=== PATIENT | female | born 1935 | race Caucasian/White ===

== ENCOUNTER 2016-12-29 14:06 | Inpatient (IN) | payer MEDICARE, OTHER ==
[~2016-12-29] VITALS: Ht 170.2 cm; Wt 77.1 kg
[~2016-12-29 14:06] MED LIST: ACET325 PO; ACTEMRA400 MG/20 IV; ALBU90OI; ALBU90OI INH; AMOX500 PO; ATORVASTATIN 20 MG; AZATHIOPRINE 50 MG; BENA20; BENAML20/5 PO; CALCA400CH; CALCIT950 PO; CHLAMI; CHOL10002 PO; CYCL10 PO; ERGO400; FERROUS SUL PO; FISH1000 PO; FOLI1 PO; FOLI400 PO; GLIM2 PO; HYDACE10 PO; HYDACE5; HYDACE5 PO; HYDHCL25 PO; HYDR1TAB94 PO; HYDROXYCHLOROQUINE 200 MG PO; IBUP400 PO; IMIP25 PO; IRON; K EFFERVESCENT; LATA.005SO BOTHEYES; LEVFLO500 PO; Lotrel 10-20 M1 EACH PO; METF500 PO; METO100ER PO; METTREX2.5 PO; MULVITMINF PO; Magnesium30 MG; NAPR220 PO; NORT25 PO; OMEP20ER PO; OMEP40CA12 PO; OXAP600; OXYACE5T PO; OXYC10ER PO; OXYC20ER; OXYC5 PO; OXYCONTIN 20 MG PO; Oxycodone HCl20 M1 PO; Oxycontin20 MG PO; POTA20PAC PO; POTCHL10ER PO; PRED5 PO; Prilosec Otc20 MG PO; Rituxan10 MG/ML; Rituxan10 MG/ML IV; Rocephin 1g1 G/50 ML IV; TRIM100 PO; VENL75ER PO; ZOLP5 PO; [UNRECOGNIZED DRUG - OTHER]; [UNRECOGNIZED DRUG - OTHER]; [UNRECOGNIZED DRUG - OTHER] IV
[2017-01-07] MEDS ORDERED: Lotrel 5-40 MG1 EACH PO (15:24)
[2017-01-07] MEDS ORDERED: [UNRECOGNIZED DRUG - OTHER] IV (15:27)
[2017-01-07] MEDS ORDERED: Lomotil Tablet1 EACH PO (15:27)
[2017-01-07] MEDS ORDERED: ACIDOPHILUS1 EAC1 PO (15:29)
--- NOTE | 2017-01-27 14:20 | NUR ---
Ambulatory in Day Surgery [facility] P[facility] warming gown applied. History, Chart, Medications and Allergies reviewed before start of procedure. Lungs clear T/O to Auscultation. Patient confirms NPO status and agrees with scheduled surgery.
--- NOTE | 2017-01-27 18:41 | NUR ---
SHIFT SUMMARY PT ARRIVED TO ROOM AT 1830, A&O, VSS, RA, SENSATION RETURNED TO MID-THIGH, SLIGHTLY ABLE TO MOVE TOES, JEFFREY PO - EATING JELLO AND ICE CHIPS. REG DINNER - GLUTEN FREE ORDERED FOR PT. WILL CTM AND TX PER EMAR UNTIL REPORT GIVEN TO JEFFREY PENA.
--- NOTE | 2017-01-28 04:06 | NUR ---
SHIFT SUMMARY PT IS POD 1 FROM R TKA. CRYOTHERAPY IN PLACE WELL DESIREE BANDAGE, WHICH IS CDI. SCD'S IN PLACE AND PT TOELRATED CPM SEVERAL TIMES T/O SHIFT. PT AMBULATED T/O SHIFT TO BATHROOM W/GOOD OUTPUT AND PO INTAKE. PAIN MANAGED WITH 7.5-15 MG ROXICODONE. VSS T/O SHIFT.
[2017-01-28 04:52] LABS: BASOPHILS ABSOLUTE AUTO 0.01 K/mm3 (0.00-0.23); BASOPHILS PERCENT AUTO 0 % (0-2); EOSINOPHILS ABSOLUTE AUTO 0.01 K/mm3 (0.00-0.68); EOSINOPHILS PERCENT AUTO 0 % (0-6); Hematocrit 33.1 % (33.0-51.0); Hemoglobin 11.3 g/dL (11.5-16.0); IMMATURE GRAN ABSOLUTE AUTO 0.01 K/mm3 (0.00-0.10); IMMATURE GRAN PERCENT AUTO 0 % (0-1); LYMPHOCYTES ABSOLUTE AUTO 0.49 K/mm3 (0.84-5.20); LYMPHOCYTES PERCENT AUTO 8 % (21-46); MONOCYTES ABSOLUTE AUTO 0.22 K/mm3 (0.16-1.47); MONOCYTES PERCENT AUTO 4 % (4-13); Mean Corpuscular HGB 30.6 pg (26.0-34.0); Mean Corpuscular HGB Conc 34.1 g/dL (31.5-36.5); Mean Corpuscular Volume 90 fL (80-100); Mean Platelet Volume 10.3 fL (9.1-12.4); NEUTROPHILS ABSOLUTE AUTO 5.31 K/mm3 (1.96-9.15); NEUTROPHILS PERCENT AUTO 88 % (41-73); Platelet Count 125 K/mm3 (150-400); RDW Coefficient Variation 12.8 % (11.7-14.2); RDW Standard Deviation 41.6 fL (35.1-46.3); Red Blood Cell Count 3.69 M/mm3 (3.80-5.20); White Blood Cell Count 6.05 K/mm3 (4.00-11.30)
[2017-01-28 05:14] LABS: Anion Gap 8 mmol/L (6-16); Blood Urea Nitrogen 21 mg/dL (8-24); Bun/Creatinine Ratio 22.7 (12.0-20.0); CO2, Blood 23 mmol/L (21-32); Calcium, Blood 8.5 mg/dL (8.5-10.1); Chloride, Blood 106 mmol/L (98-108); Creatinine, Blood 0.92 mg/dL (0.40-1.00); Glomerular Filtration Rate >60 (60-); Glucose, Blood 220 mg/dL (70-99); Magnesium, Blood 2.1 mg/dL (1.6-2.4); Potassium, Blood 4.1 mmol/L (3.5-5.5); Sodium, Blood 137 mmol/L (136-145)
[2017-01-28] MEDS ORDERED: ASPI325EC PO (11:02)
[2017-01-28] MEDS ORDERED: PROM25 PO (11:04)
--- NOTE | 2017-01-28 14:57 | NUR ---
DISCHARGE PT DISCHARGED HOME AT 1430. PT WAS PROVIDED WITH WRITTEN AND VERBAL DISCHARGE INSTRUCTIONS. PT RECIEVED REPLACEMENT DRESSINGS AND PRESCRIPTIONS. QUESTIONS ANSWERED. PT REPORTED UNDERSTANDING DISCHARGE INSTRUCTIONS AND APPEARED PLEASED WITH THE DISCHARGE PLAN. VSS. PT ASSISTED OUT IN W/C BY MICHELLE CHRISTENSEN.
[2017-12-09] MEDS ORDERED: GOLIMUMAB IV (15:23)
[2017-12-09] MEDS ORDERED: Amlodipine-Ben1 EACH PO (15:24)
[2017-12-09] MEDS ORDERED: LATANOPROST 0.7.5 ML BOTHEYES (15:25)
[2017-12-09] MEDS ORDERED: OXYC5 PO (15:25)
[2017-12-09] MEDS ORDERED: Desyrel150 MG PO (15:26)
[2017-12-09] MEDS ORDERED: GLIM2 PO (15:28)
[2018-01-10] MEDS ORDERED: Oxycodone-Apap1 EA14 PO (12:54)
[2018-01-10] MEDS ORDERED: TRAZ150T57 PO (12:54)
[2018-01-10] MEDS ORDERED: Lomotil Tablet1 EACH PO (12:54)
[2018-01-10] MEDS ORDERED: LATANOPROST2.5 ML OP (12:54)
[2018-01-10] MEDS ORDERED: Micro-K10 MEQ (12:54)
[2018-01-11] MEDS ORDERED: METO50 PO (13:38)
[2018-01-11] MEDS ORDERED: XARELTO15 MG PO (14:16)
[2018-04-05] MEDS ORDERED: OMEPRAZOLE MAGN20 MG PO (14:12)
[2018-04-05] MEDS ORDERED: GLIM2 PO (14:12)
[2018-04-05] MEDS ORDERED: SIMPONI AR50 MG/4 ML IV (14:13)
[2018-04-05] MEDS ORDERED: VITAMIN D3400 UNIT PO (14:13)
[2018-04-05] MEDS ORDERED: Cranberry300 MG PO (14:15)
[2018-04-05] MEDS ORDERED: CALCIUM 500 +1 EAC2 PO (14:15)
[2018-04-05] MEDS ORDERED: TRAM50 PO (14:16)
[2018-04-05] MEDS ORDERED: METO25ER PO (14:16)
[2018-04-05] MEDS ORDERED: Lomotil Tablet1 EACH PO (14:16)
[2018-04-05] MEDS ORDERED: ELIQUIS2.5 MG PO (14:17)
== END 2017-01-28 14:45 | disposition home or self-care (01) | DRG 470 ==
LOC: SURS 01-27 12:59 → PRE IP 01-27 15:00 → SURS 01-27 20:01
PROVIDERS: ADMIT Orthopaedic Surgery
PROC: 8E0YXBZ Computer Assisted Procedure of Lower Extremity (ICD-10-PCS; 2017-01-27)
PROC: 0SRC0J9 Replacement of Right Knee Joint with Synthetic Substitute, Cemented, Open Approach (ICD-10-PCS; principal; 2017-01-27 15:00)
DX: M17.11 Unilateral primary osteoarthritis, right knee (principal); M06.9 Rheumatoid arthritis, unspecified; E11.9 Type 2 diabetes mellitus without complications; K74.60 Unspecified cirrhosis of liver; K90.0 Celiac disease; E78.5 Hyperlipidemia, unspecified; Z79.899 Other long term (current) drug therapy; Z88.2 Allergy status to sulfonamides; Z91.030 Bee allergy status; Z88.8 Allergy status to other drugs, medicaments and biological substances; Z91.018 Allergy to other foods; Z85.3 Personal history of malignant neoplasm of breast
CPT/HCPCS: 36415; 73560-RT; 80048; 82947; 83735; 85025; 86850; 86900; 86901; 88300; 97110; 97116; 97162; 97530; C1713; C1776; G8978; G8979; J0171; J0690; J0735; J1100; J1885; J2250; J2795; J3010; J3370; J7030; J7050; J7120

== ENCOUNTER → 2017-06-17 | Outpatient (CLI) | payer MEDICARE, OTHER ==
[~2017-06-17] MED LIST changes: +ACIDOPHILUS1 EAC1 PO; +ASPI325EC PO; +Lomotil Tablet1 EACH PO; +Lotrel 5-40 MG1 EACH PO; +PROM25 PO; +[UNRECOGNIZED DRUG - OTHER] IV
== END ==
LOC: PLD 11:50 → LAB SHORT 11:50
DX: D48.5 Neoplasm of uncertain behavior of skin (principal)
CPT/HCPCS: 88305

== ENCOUNTER 2017-06-30 05:59 | Emergency (ER) | payer MEDICARE, OTHER ==
[~2017-06-30] VITALS: Ht 170.2 cm; Wt 71.7 kg
[2017-06-30 06:47] LABS: Source, Urine Clean Catch
[2017-06-30 06:55] LABS: Bilirubin, Urine Neg (Neg); Blood, Urine 5+ (Neg); Glucose Qualitative, Urine Neg (Neg); Ketones, Urine Neg (Neg); Leukocyte Esterase, Urine 3+ (Neg); Nitrite, Urine Pos (Neg); Protein, Urine 1+ (Neg); Urobilinogen, Urine NORM (Normal)
[2017-06-30 07:02] LABS: BASOPHILS ABSOLUTE AUTO 0.02 K/mm3 (0.00-0.23); BASOPHILS PERCENT AUTO 0 % (0-2); EOSINOPHILS ABSOLUTE AUTO 0.24 K/mm3 (0.00-0.68); EOSINOPHILS PERCENT AUTO 4 % (0-6); Hematocrit 38.7 % (33.0-51.0); Hemoglobin 12.9 g/dL (11.5-16.0); IMMATURE GRAN ABSOLUTE AUTO 0.01 K/mm3 (0.00-0.10); IMMATURE GRAN PERCENT AUTO 0 % (0-1); LYMPHOCYTES ABSOLUTE AUTO 1.51 K/mm3 (0.84-5.20); LYMPHOCYTES PERCENT AUTO 26 % (21-46); MONOCYTES ABSOLUTE AUTO 0.52 K/mm3 (0.16-1.47); MONOCYTES PERCENT AUTO 9 % (4-13); Mean Corpuscular HGB 29.6 pg (26.0-34.0); Mean Corpuscular HGB Conc 33.3 g/dL (31.5-36.5); Mean Corpuscular Volume 89 fL (80-100); NEUTROPHILS ABSOLUTE AUTO 3.63 K/mm3 (1.96-9.15); NEUTROPHILS PERCENT AUTO 61 % (41-73); Platelet Count 155 K/mm3 (150-400); RDW Coefficient Variation 13.4 % (11.7-14.2); RDW Standard Deviation 43.9 fL (35.1-46.3); Red Blood Cell Count 4.36 M/mm3 (3.80-5.20); White Blood Cell Count 5.93 K/mm3 (4.00-11.30)
[2017-06-30 07:09] LABS: Appearance, Urine Cloudy (Clear); Color, Urine Yellow (P-Yellow)
[2017-06-30 07:13] LABS: White Blood Cells, Urine 50-100 /hpf (0-5)
[2017-06-30 07:15] LABS: Calcium, Blood 9.4 mg/dL (8.5-10.1); Creatinine, Blood 1.09 mg/dL (0.40-1.00); Potassium, Blood 4.2 mmol/L (3.5-5.5); Squamous Epithelial Cells Few /hpf (Few)
[2017-06-30 07:16] LABS: Bacteria Many /hpf
[2017-06-30] MEDS ORDERED: CEPH500 PO (07:43)
== END 2017-06-30 07:52 | disposition home or self-care (01) ==
LOC: ER 05:59
PROVIDERS: Emergency Medicine
DX: N12 Tubulo-interstitial nephritis, not specified as acute or chronic (principal); E11.9 Type 2 diabetes mellitus without complications; Z88.2 Allergy status to sulfonamides; Z91.030 Bee allergy status; Z88.8 Allergy status to other drugs, medicaments and biological substances; Z79.899 Other long term (current) drug therapy; Z79.891 Long term (current) use of opiate analgesic
CPT/HCPCS: 36415; 80048; 81001; 85025; 87077; 87086; 87186; 96374; 99283; J1885

== ENCOUNTER 2017-12-29 09:02 | Day surgery (SDC) | payer MEDICARE, OTHER ==
[~2017-12-29] VITALS: Ht 167.6 cm; Wt 71.2 kg
[~2017-12-29 09:02] MED LIST changes: +Amlodipine-Ben1 EACH PO; +CEPH500 PO; +Desyrel150 MG PO; +GOLIMUMAB IV; +LATANOPROST 0.7.5 ML BOTHEYES
[2017-12-30 04:42] LABS: BASOPHILS ABSOLUTE AUTO 0.01 K/mm3 (0.00-0.23); BASOPHILS PERCENT AUTO 0 % (0-2); EOSINOPHILS PERCENT AUTO 0 % (0-6); Hematocrit 32.4 % (33.0-51.0); Hemoglobin 10.4 g/dL (11.5-16.0); IMMATURE GRAN ABSOLUTE AUTO 0.02 K/mm3 (0.00-0.10); IMMATURE GRAN PERCENT AUTO 0 % (0-1); LYMPHOCYTES PERCENT AUTO 13 % (21-46); MONOCYTES ABSOLUTE AUTO 0.61 K/mm3 (0.16-1.47); MONOCYTES PERCENT AUTO 8 % (4-13); Mean Corpuscular HGB 30.3 pg (26.0-34.0); Mean Corpuscular HGB Conc 32.1 g/dL (31.5-36.5); Mean Corpuscular Volume 95 fL (80-100); Mean Platelet Volume 10.4 fL (9.1-12.4); NEUTROPHILS ABSOLUTE AUTO 6.05 K/mm3 (1.96-9.15); NEUTROPHILS PERCENT AUTO 79 % (41-73); Platelet Count 127 K/mm3 (150-400); RDW Coefficient Variation 12.7 % (11.7-14.2); RDW Standard Deviation 43.9 fL (35.1-46.3); Red Blood Cell Count 3.43 M/mm3 (3.80-5.20); White Blood Cell Count 7.69 K/mm3 (4.00-11.30)
[2017-12-30 05:02] LABS: Bun/Creatinine Ratio 21.4 (12.0-20.0); Calcium, Blood 8.3 mg/dL (8.5-10.1); Creatinine, Blood 1.12 mg/dL (0.40-1.00); Potassium, Blood 4.2 mmol/L (3.5-5.5)
[2017-12-30] MEDS ORDERED: OXYC5 PO (10:11)
== END 2017-12-30 10:45 | disposition home or self-care (01) ==
LOC: ORSCMMR 09:02 → ORD 10:30 → ORSCMMR 10:30 → SURS 14:44 → ORSCMMR 12-30 10:45 → SURS 12-30 10:45
PROVIDERS: Orthopaedic Surgery
PROC: 8E0YXBZ Computer Assisted Procedure of Lower Extremity (ICD-10-PCS; principal; 2017-12-30)
PROC: 0SRD069 Replacement of Left Knee Joint with Oxidized Zirconium on Polyethylene Synthetic Substitute, Cemented, Open Approach (ICD-10-PCS; principal; 2017-12-30)
DX: M17.12 Unilateral primary osteoarthritis, left knee (principal); E11.9 Type 2 diabetes mellitus without complications; E78.5 Hyperlipidemia, unspecified; M06.9 Rheumatoid arthritis, unspecified; J45.909 Unspecified asthma, uncomplicated; F32.9 Major depressive disorder, single episode, unspecified; K74.60 Unspecified cirrhosis of liver; Z79.899 Other long term (current) drug therapy
CPT/HCPCS: 36415; 73560-LT; 80048; 82947; 83735; 85025; 86850; 86900; 86901; 88300; 97110; 97116; 97161; 97530; C1713; C1776; G8978; G8979; G8980; J0171; J0690; J0735; J1885; J2250; J2795; J3370; J7030; J7120; Q0163

== ENCOUNTER → 2018-01-10 | Outpatient (CLI) | payer MEDICARE, OTHER ==
[~2018-01-10] MED LIST changes: +CALCIUM 500 +1 EAC2 PO; +Cranberry300 MG PO; +ELIQUIS2.5 MG PO; +LATANOPROST2.5 ML OP; +METO25ER PO; +METO50 PO; +Micro-K10 MEQ; +OMEPRAZOLE MAGN20 MG PO; +Oxycodone-Apap1 EA14 PO; +SIMPONI AR50 MG/4 ML IV; +TRAM50 PO; +TRAZ150T57 PO; +VITAMIN D3400 UNIT PO; +XARELTO15 MG PO
[2018-01-10 09:52] LABS: BASOPHILS ABSOLUTE AUTO 0.04 K/mm3 (0.00-0.23); BASOPHILS PERCENT AUTO 1 % (0-2); EOSINOPHILS ABSOLUTE AUTO 0.24 K/mm3 (0.00-0.68); EOSINOPHILS PERCENT AUTO 3 % (0-6); Hematocrit 33.3 % (33.0-51.0); Hemoglobin 11.2 g/dL (11.5-16.0); IMMATURE GRAN ABSOLUTE AUTO 0.03 K/mm3 (0.00-0.10); IMMATURE GRAN PERCENT AUTO 0 % (0-1); LYMPHOCYTES ABSOLUTE AUTO 1.56 K/mm3 (0.84-5.20); LYMPHOCYTES PERCENT AUTO 21 % (21-46); MONOCYTES ABSOLUTE AUTO 0.79 K/mm3 (0.16-1.47); MONOCYTES PERCENT AUTO 11 % (4-13); Mean Corpuscular HGB 30.4 pg (26.0-34.0); Mean Corpuscular HGB Conc 33.6 g/dL (31.5-36.5); Mean Platelet Volume 9.7 fL (9.1-12.4); NEUTROPHILS ABSOLUTE AUTO 4.75 K/mm3 (1.96-9.15); NEUTROPHILS PERCENT AUTO 64 % (41-73); Platelet Count 278 K/mm3 (150-400); RDW Coefficient Variation 13.5 % (11.7-14.2); RDW Standard Deviation 44.2 fL (35.1-46.3); Red Blood Cell Count 3.68 M/mm3 (3.80-5.20); White Blood Cell Count 7.41 K/mm3 (4.00-11.30)
[2018-01-10 09:54] LABS: Mean Corpuscular Volume 91 fL (80-100)
[2018-01-10 10:12] LABS: Albumin, Blood 3.5 g/dL (3.4-5.0); Albumin/Globulin Ratio 0.9 (0.8-1.8); Bilirubin, Total 0.7 mg/dL (0.1-1.0); Calcium, Blood 9.6 mg/dL (8.5-10.1); Creatinine, Blood 1.43 mg/dL (0.40-1.00); Globulin, Blood 3.9 g/dL (2.2-4.0); Potassium, Blood 3.6 mmol/L (3.5-5.5); Thyroid Stimulating Hormone 0.826 uIU/mL (0.360-4.800); Total Protein, Blood 7.4 g/dL (6.4-8.2); Troponin I 0.071 ng/mL (0.000-0.040)
== END ==
LOC: LAB EV 09:43 → LAB SHORT 09:43
PROVIDERS: Physician Assistant
DX: N39.0 Urinary tract infection, site not specified (principal)
CPT/HCPCS: 80053; 84443; 84484; 85025; 87086

== ENCOUNTER 2018-04-06 10:06 | Day surgery (SDC) | payer MEDICARE, OTHER ==
[~2018-04-06] VITALS: Ht 167.6 cm; Wt 75.0 kg
--- NOTE | 2018-04-06 12:50 | NUR ---
DR PEACOCK IN ROOM DISCUSSING PLAN OF CARE WITH PT AND FAMILY. Bhavya ROBERTO.
--- NOTE | 2018-04-06 13:02 | NUR ---
PT AMBULATES TO AND FROM RESTROOM WITHOUT DIFF. VSS. NADN. L RADIAL SITE STABLE
--- NOTE | 2018-04-06 14:01 | NUR ---
AIR RELEASED FROM TR BAND. NO BLEEDING OR HEMATOMA NOTED. VSS. NADN. CALL IGHT WITHIN REACH.
--- NOTE | 2018-04-06 14:50 | NUR ---
PT VERBALIZES UNDERSTANDING WRITTEN AND VERBAL ORDERS. PT DRESSES SELF WITHOUT DIFF. PT TR BAND REMOVED. DOT DRESSING WITH SPLINT IN PLACE. SITE REMAINS CLEAR. PT DC TO HOME VIA FAMILY/ ESCORTED BY THIS NURSE WITH WC.
== END 2018-04-06 14:55 | disposition home or self-care (01) ==
LOC: MHTC 10:06
DX: R94.39 Abnormal result of other cardiovascular function study (principal); I20.9 Angina pectoris, unspecified
CPT/HCPCS: 93458; 99152; 99153; C1769; C1887; C1894; J1644; J2250; J3010; J7030; Q9967

== ENCOUNTER → 2018-06-04 | Outpatient (CLI) | payer MEDICARE, OTHER | LOC: LAB 14:30 → LAB SHORT 14:30 | DX: R30.0 Dysuria (principal) | CPT/HCPCS: 87077; 87086; 87186 ==

== ENCOUNTER → 2018-08-09 | Outpatient (CLI) | payer MEDICARE, OTHER | END | disposition home or self-care (01) | LOC: LAB SHORT 17:54 → LAB 17:54 | DX: N39.0 Urinary tract infection, site not specified (principal) | CPT/HCPCS: 87077; 87086; 87186 ==

== ENCOUNTER → 2018-12-13 | Outpatient (CLI) | payer MEDICARE, OTHER | END | disposition home or self-care (01) | LOC: LAB SHORT 13:45 → LAB 13:45 | DX: N39.0 Urinary tract infection, site not specified (principal); R35.0 Frequency of micturition | CPT/HCPCS: 87077; 87086; 87186 ==

== ENCOUNTER → 2019-02-01 | Outpatient (CLI) | payer MEDICARE, OTHER | END | disposition home or self-care (01) | LOC: LAB 19:20 → LAB SHORT 19:20 | DX: N39.0 Urinary tract infection, site not specified (principal) | CPT/HCPCS: 87077; 87086; 87186 ==

== ENCOUNTER → 2019-02-24 | Outpatient (CLI) | payer MEDICARE, OTHER ==
[2019-02-24 14:38] LABS: Appearance, Urine Hazy (Clear); Bilirubin, Urine Neg (Neg); Blood, Urine 5+ (Neg); Color, Urine Yellow (P-Yellow); Glucose Qualitative, Urine Neg (Neg); Ketones, Urine Neg (Neg); Leukocyte Esterase, Urine 3+ (Neg); Nitrite, Urine Neg (Neg); Protein, Urine 3+ (Neg); Urobilinogen, Urine NORM (Normal); pH, Urine 6.5 (5.0-8.0)
[2019-02-24 15:02] LABS: Red Blood Cells, Urine TNTC /hpf (0-2); White Blood Cells, Urine TNTC /hpf (0-5)
[2019-02-24 15:04] LABS: Bacteria Many /hpf; Squamous Epithelial Cells Few /hpf (Few)
== END | disposition home or self-care (01) ==
LOC: OLS 13:10 → LAB SHORT 13:10 → EDSTATUS 02-22 15:55 → LAB FUT 02-22 15:55
PROVIDERS: Physician Assistant
DX: N39.0 Urinary tract infection, site not specified (principal)
CPT/HCPCS: 81001; 87077; 87086; 87186

== ENCOUNTER 2019-04-03 20:32 | Emergency (ER) | payer MEDICARE, OTHER ==
[~2019-04-03] VITALS: Ht 170.2 cm; Wt 72.6 kg
[2019-04-03 20:59] LABS: BASOPHILS ABSOLUTE AUTO 0.02 K/mm3 (0.00-0.23); BASOPHILS PERCENT AUTO 0 % (0-2); EOSINOPHILS ABSOLUTE AUTO 0.14 K/mm3 (0.00-0.68); EOSINOPHILS PERCENT AUTO 2 % (0-6); Hematocrit 32.9 % (33.0-51.0); Hemoglobin 10.6 g/dL (11.5-16.0); IMMATURE GRAN ABSOLUTE AUTO 0.01 K/mm3 (0.00-0.10); IMMATURE GRAN PERCENT AUTO 0 % (0-1); LYMPHOCYTES ABSOLUTE AUTO 2.15 K/mm3 (0.84-5.20); LYMPHOCYTES PERCENT AUTO 37 % (21-46); MONOCYTES PERCENT AUTO 9 % (4-13); Mean Corpuscular HGB 28.5 pg (26.0-34.0); Mean Corpuscular HGB Conc 32.2 g/dL (31.5-36.5); Mean Corpuscular Volume 88 fL (80-100); Mean Platelet Volume 10.8 fL (9.1-12.4); NEUTROPHILS ABSOLUTE AUTO 3.03 K/mm3 (1.96-9.15); NEUTROPHILS PERCENT AUTO 52 % (41-73); Platelet Count 178 K/mm3 (150-400); RDW Standard Deviation 42.2 fL (35.1-46.3); Red Blood Cell Count 3.72 M/mm3 (3.80-5.20); White Blood Cell Count 5.85 K/mm3 (4.00-11.30)
[2019-04-03 21:17] LABS: Albumin, Blood 3.5 g/dL (3.4-5.0); Albumin/Globulin Ratio 0.9 (0.8-1.8); Bilirubin, Total 0.3 mg/dL (0.1-1.0); Bun/Creatinine Ratio 15.5 (12.0-20.0); Calcium, Blood 8.8 mg/dL (8.5-10.1); Creatinine, Blood 1.42 mg/dL (0.40-1.00); Globulin, Blood 4.1 g/dL (2.2-4.0); Potassium, Blood 3.8 mmol/L (3.5-5.5); Total Protein, Blood 7.6 g/dL (6.4-8.2)
[2019-04-03 23:21] LABS: Source, Urine Clean Catch
[2019-04-03 23:23] LABS: Bilirubin, Urine Neg (Neg); Blood, Urine 5+ (Neg); Glucose Qualitative, Urine 3+ (Neg); Ketones, Urine 1+ (Neg); Leukocyte Esterase, Urine 3+ (Neg); Nitrite, Urine Neg (Neg); Protein, Urine 3+ (Neg); Specific Gravity, Urine 1.015 (1.003-1.022); Urobilinogen, Urine 2+ (Normal)
[2019-04-03 23:38] LABS: Appearance, Urine Cloudy (Clear); Bacteria Many /hpf; Color, Urine Yellow (P-Yellow); Red Blood Cells, Urine 25-50 /hpf (0-2); Squamous Epithelial Cells Not Seen /hpf (Few); White Blood Cells, Urine TNTC /hpf (0-5)
[2019-04-03] MEDS ORDERED: PRINIVIL10 MG PO (23:39)
[2019-04-03] MEDS ORDERED: Amoxicillin500 MG PO (23:40)
[2019-04-04] MEDS ORDERED: ONDA4ODT MM (01:03)
[2019-04-04] MEDS ORDERED: Augmentin 875-1 EACH PO (01:03)
[2019-04-04] MEDS ORDERED: Norco 5-325 Ta1 EACH PO (01:03)
== END 2019-04-04 01:20 | disposition home or self-care (01) ==
LOC: ER 20:32
PROVIDERS: Emergency Medicine; Physician Assistant
DX: N13.2 Hydronephrosis with renal and ureteral calculous obstruction (principal); N39.0 Urinary tract infection, site not specified; E11.9 Type 2 diabetes mellitus without complications; I10 Essential (primary) hypertension; E78.5 Hyperlipidemia, unspecified; F32.9 Major depressive disorder, single episode, unspecified; Z91.038 Other insect allergy status; Z88.2 Allergy status to sulfonamides; Z91.011 Allergy to milk products; Z88.8 Allergy status to other drugs, medicaments and biological substances; Z79.899 Other long term (current) drug therapy; Z79.01 Long term (current) use of anticoagulants
CPT/HCPCS: 36415; 74176; 80053; 81001; 83690; 85025; 87077; 87086; 87186; 96365; 99284-25; A9270; J0696; J7030

== ENCOUNTER → 2019-07-10 | Outpatient (CLI) | payer MEDICARE, OTHER ==
[~2019-07-10] MED LIST changes: +Amoxicillin500 MG PO; +Augmentin 875-1 EACH PO; +Norco 5-325 Ta1 EACH PO; +ONDA4ODT MM; +PRINIVIL10 MG PO
== END | disposition home or self-care (01) ==
LOC: LAB SHORT 17:20 → LAB 17:20 → LAB FUT 04-23 11:30
DX: N20.0 Calculus of kidney (principal)
CPT/HCPCS: 81050